=== PATIENT | male | born 1990 | race Caucasian/White ===

== ENCOUNTER 2019-10-03 06:34 | Emergency (ER) | payer BC, MEDICAID ==
[2019-10-03 06:55] VITALS: BP 112/82; PULSE 73
[2019-10-03] MEDS ORDERED: Ketorolac 60 MG/2 ML SDV IM ONE (07:12)
--- NOTE | 2019-10-03 07:15 | EDM.PDOC ---
ED HPI GENERAL MEDICAL PROBLEM - General Chief Complaint: Lower Extremity Injury/Pain Stated Complaint: INJURED L FOOT Time Seen by Provider: 10/03/19 06:58 Source of Information: Reports: Patient, RN Notes Reviewed History Limitations: Reports: No Limitations - History of Present Illness INITIAL COMMENTS - FREE TEXT/NARRATIVE: 28-year-old gentleman presents emergency department a complaint of left foot pain, he is not sure how he injured his foot he was doing some physical activity yesterday does have some edema over the top of his foot pain with ambulation Left Feet Pain Score (Numeric/FACES): 8 - Related Data Allergies Allergy/AdvReac Type Severity Reaction Status Date / Time prednisone AdvReac Agitation Verified 10/03/19 06:55 Home Meds: Home Meds NK [No Known Home Meds] 01/14/16 [History] Past Medical History Musculoskeletal History: Reports: Fracture Endocrine/Metabolic History: Reports: Obesity/BMI 30+ - Infectious Disease History Infectious Disease History: Reports: Chicken Pox - Past Surgical History Head Surgeries/Procedures: Reports: None Endocrine Surgical History: Reports: None Musculoskeletal Surgical History: Reports: None Dermatological Surgical History: Reports: None Social & Family History - Tobacco Use Smoking Status *Q: Current Every Day Smoker Years of Tobacco use: 10 Packs/Tins Daily: 1 Used Tobacco, but Quit: No Second Hand Smoke Exposure: No - Caffeine Use Caffeine Use: Reports: Soda - Recreational Drug Use Recreational Drug Use: No Review of Systems - Review of Systems Review Of Systems: See Below Musculoskeletal: Reports: Foot Pain Skin: Reports: Other (Edema left foot) Neurological: Reports: No Symptoms ED EXAM, GENERAL - Physical Exam Exam: See Below Free Text/Narrative:: Examination left foot I do appreciate a little bit of edema over the dorsal aspect of the foot this is between the metatarsals 4 and 5, he has limited range of motion of the foot as well as digits secondary to pain difficult for him to ambulate pedal pulses +2 Course - Vital Signs Last Recorded V/S: Last Vital Signs Temp 98.3 F 10/03/19 06:55 Pulse 73 10/03/19 06:55 Resp 16 10/03/19 06:55 BP 112/82 10/03/19 06:55 Pulse Ox 96 10/03/19 06:55 - Orders/Labs/Meds Orders: Active Orders 24 hr Category Date Time Status Foot Comp Min 3V Lt [CR] Stat Exams 10/03/19 07:12 Taken Meds: Medications Discontinued Medications Generic Name Dose Route Start Last Admin Trade Name Rose PRN Reason Stop Dose Admin Ketorolac Tromethamine 60 mg 10/03/19 07:12 10/03/19 07:17 Toradol IM 10/03/19 07:13 60 mg ONETIME ONE Administration Departure - Departure Time of Disposition: 08:28 Disposition: Home, Self-Care 01 Condition: Fair Clinical Impression: Contusion of left foot Qualifiers: Encounter type: initial encounter Qualified Code(s): S90.32XA - Contusion of left foot, initial encounter - Discharge Information Instructions: Foot Contusion Referrals: PCP,None [Primary Care Provider] - Forms: ED Department Discharge, ED Return to Work/School Form Additional Instructions: Recommend rest ice continue with ibuprofen as needed for pain control keep your follow-up appointment with your primary care provider next week, Sepsis Event Note (ED) - Evaluation Sepsis Screening Result: No Definite Risk - Focused Exam Vital Signs: Vital Signs Temp Pulse Resp BP Pulse Ox 10/03/19 06:55 98.3 F 73 16 112/82 96 10/03/19 06:54 98.3 F 73 16 112/82 96 - My Orders Last 24 Hours: My Active Orders 10/03/19 07:12 Foot Comp Min 3V Lt [CR] Stat - Assessment/Plan Last 24 Hours: My Active Orders 10/03/19 07:12 Foot Comp Min 3V Lt [CR] Stat Plan: Assessment Acuity = acute Site and laterality = left foot contusion Etiology = unknown Manifestations = pain Location of injury = Home Lab values = foot x-ray I did review films myself I cannot appreciate any acute process, the official read from radiology is pending Plan He had good relief from the Toradol injection provided he is going to follow-up with his primary care on Friday of this week for further evaluation continue to use ibuprofen as needed This note was dictated using [employer] voice recognition software please call with any questions on syntax or grammar.
--- NOTE | 2019-10-04 11:05 | CR ---
Foot Comp Min 3V Lt CLINICAL HISTORY: Midfoot pain FINDINGS: There is no acute fracture or dislocation within the foot. No destructive changes are present. IMPRESSION: No acute bony process.
== END 2019-10-03 08:35 | disposition home or self-care (01) ==
LOC: JP.ED 06:34
DX: S90.32XA Contusion of left foot, initial encounter (principal); E66.9 Obesity, unspecified; F17.210 Nicotine dependence, cigarettes, uncomplicated; Z88.8 Allergy status to other drugs, medicaments and biological substances; Z68.38 Body mass index [BMI] 38.0-38.9, adult; X58.XXXA Exposure to other specified factors, initial encounter; Y93.89 Activity, other specified
CPT/HCPCS: 73630; 96372; 99283; J1885

== ENCOUNTER 2021-12-09 01:46 | Emergency (ER) | payer BC ==
[2021-12-09 02:32] VITALS: BP 119/70; PULSE 75
[2021-12-09] MEDS ORDERED: Ketorolac 30 MG/ML SDV IM ONE (02:54)
[2021-12-09 03:26] LABS: ESTIMATED GFR 119 mL/min (>60); TROPONIN I HIGH SENSITIVITY 4.1 pg/mL (<=60.3)
== END 2021-12-09 04:07 | disposition home or self-care (01) ==
LOC: JP.ED 01:46
DX: R10.84 Generalized abdominal pain (principal); F17.210 Nicotine dependence, cigarettes, uncomplicated; E66.9 Obesity, unspecified; Z68.33 Body mass index [BMI] 33.0-33.9, adult; Z88.8 Allergy status to other drugs, medicaments and biological substances
CPT/HCPCS: 36415; 74018; 80053; 83605; 83690; 84484; 85025; 96372; 99284; J1885